=== PATIENT | female | born 1965 | race Caucasian/White ===

== ENCOUNTER → 2023-01-03 12:12 | Outpatient (CLI) | payer OTHER, SELFPAY ==
--- NOTE | 2023-01-03 12:13 | DI.MRI.S_ITS ---
PROCEDURE: MR PELVIS WO/W CON INDICATIONS: Intermittent pelvic pain w/vag and/or rectal bleeding TECHNIQUE: Coronal HASTE, sagittal breath-hold T2 FSE; axial T1 FSE with and without fat saturation through the pelvis. Optional long- and short-axis uterine nonbreath-hold T2 FSE through the uterus. Sagittal or axial dynamic VIBE during administration of contrast. Post-contrast axial or coronal VIBE/2-D FLASH with fat saturation from the iliac crests to the symphysis. Optional diffusion weighted imaging and ADC may be performed. COMPARISON: [facility], CT, CT ABDOMEN PELVIS WITH CONTRAST, 03/21/2020, 8:39. FINDINGS: Uterus: Uterus is normal in size. Endometrium is thin, approximately 2 millimeters. Junctional zone is normal in thickness at 12 mm or less. A few nabothian cysts are present. Possible cervical glandular hyperplasia. Adnexa: Both ovaries are unremarkable in size for age, without suspicious cystic or solid lesions. No definite adnexal mass identified. No definite evidence of endometriosis identified. Urinary system: Bladder wall is normal in thickness. Distal ureters are non distended. Nodes and vessels: No pelvic or inguinal adenopathy by size criteria. Iliac vessels are normal in size. Bowel and peritoneum: No pathologic free pelvic fluid. Inferior colon and small bowel loops are normal in caliber. No definite rectal wall thickening identified. Bones: Marrow demonstrates unremarkable overall signal. IMPRESSION: 1. The endometrium at the uterine cavity appears thin, approximately 2 millimeters. 2. Possible changes of cervical glandular hyperplasia. 3. No adnexal mass identified. Dictated by: Joe Salcido M.D. on 01/03/2023 at 15:04 Approved by: Joe Salcido M.D. on 01/03/2023 at 15:23
== END ==
PROVIDERS: Referring Provider Obstetrics & Gynecology; Visit Provider Obstetrics & Gynecology
DX: R10.2 Pelvic and perineal pain (principal)
CPT/HCPCS: 72197; A9579